=== PATIENT | male | born 2000 | race Caucasian/White ===

== ENCOUNTER 2019-02-17 18:26 | Emergency (ER) | payer BC ==
[2019-02-17 18:34] VITALS: BP 126/70
--- NOTE | 2019-02-17 18:48 | UC ---
Epistaxis Nasal HPI - HPI Summary HPI Summary: ran in to another persons shoulder with his nose-felt in move out of place then back in to place left nares bleeding but now resolved--patient reports nose is currently looking at its base line - History of Current Complaint Chief Complaint: UCTrauma Stated Complaint: NOSE BLEED Time Seen by Provider: 02/17/19 18:42 Hx Obtained From: Patient Onset/Duration: Sudden Onset, Lasting Minutes Timing: Constant Severity Initially: Moderate Pain Intensity: 5 Pain Scale Used: 0-10 Numeric Character: Light Aggravating Factor(s): Nasal Trauma Alleviating Factor(s): Pressure - Allergies/Home Medications Allergies/Adverse Reactions: Allergies Allergy/AdvReac Type Severity Reaction Status Date / Time No Known Allergies Allergy Unverified 02/04/14 15:37 Home Medications: Home Medications NK [No Home Medications Reported] 02/17/19 [History Confirmed 02/17/19] PMH/Surg Hx/FS Hx/Imm Hx Previously Healthy: Yes - Surgical History Surgical History: None - Family History Known Family History: Positive: None - Social History Occupation: Student Lives: With Family Alcohol Use: None Substance Use Type: None Smoking Status (MU): Never Smoked Tobacco Review of Systems All Other Systems Reviewed And Are Negative: Yes Constitutional: Positive: Negative Skin: Positive: Negative Eyes: Positive: Negative ENT: Positive: Negative Respiratory: Positive: Negative Cardiovascular: Positive: Negative Gastrointestinal: Positive: Negative Genitourinary: Positive: Negative Motor: Positive: Negative Musculoskeletal: Positive: Arthralgia - nose Neurological: Positive: Negative Psychological: Positive: Negative Is Patient Immunocompromised?: No Physical Exam Triage Information Reviewed: Yes Appearance: Well-Appearing, No Pain Distress, Well-Nourished Vital Signs: Initial Vital Signs Temp 98.9 F 02/17/19 18:30 Pulse 77 02/17/19 18:30 Resp 18 02/17/19 18:30 BP 126/70 02/17/19 18:30 Pulse Ox 99 02/17/19 18:30 Vital Signs Reviewed: Yes Eye Exam: Normal Eyes: Positive: Conjunctiva Clear, Other: - perrla, eomi, no maxilla discomfort ENT Exam: Normal ENT: Positive: Normal ENT inspection, Hearing grossly normal, Pharynx normal, TMs normal, Other - no hematoma/clot in nares. Negative: Nasal congestion, Tonsillar swelling, Tonsillar exudate, Trismus, Muffled voice, Hoarse voice, Dental tenderness Dental Exam: Normal Neck exam: Normal Neck: Positive: Supple, Nontender, No Lymphadenopathy Respiratory Exam: Normal Respiratory: Positive: Chest non-tender, Lungs clear, Normal breath sounds, No respiratory distress, No accessory muscle use Cardiovascular Exam: Normal Cardiovascular: Positive: RRR, No Murmur, Pulses Normal, Brisk Capillary Refill Musculoskeletal Exam: Normal Musculoskeletal: Positive: Strength Intact, ROM Intact, No Edema Neurological Exam: Normal Neurological: Positive: Alert, Muscle Tone Normal Psychological Exam: Normal Psychological: Positive: Normal Response To Family Skin Exam: Normal Epistaxis Nasal Course/Dx - Course Course Of Treatment: rest tylenol and ice for pain, education provided what to do if nose bleeds again----follow with pcp this week prn - Differential Dx/Diagnosis Provider Diagnosis: Epistaxis due to trauma Discharge ED - Sign-Out/Discharge Documenting (check all that apply): Patient Departure All imaging exams completed and their final reports reviewed: No Studies - Discharge Plan Condition: Stable Disposition: HOME Patient Education Materials: Nosebleed (ED), Ice Pack Application (ED), Facial Contusion (ED) Referrals: Benito Verde MD [Primary Care Provider] - If Needed - Billing Disposition and Condition Condition: STABLE Disposition: Home
== END 2019-02-17 18:55 | disposition home or self-care (01) ==
LOC: UCEAST 18:26
DX: R04.0 Epistaxis (principal)
CPT/HCPCS: 99211; G0463